=== PATIENT | female | born 1975 | race African-American/Black ===

== ENCOUNTER 2016-10-23 10:56 | Emergency (ER) | payer SELFPAY ==
[~2016-10-23] VITALS: Ht 170.2 cm; Wt 89.4 kg
[~2016-10-23 10:56] MED LIST: FERROUS SULFAT325 MG PO; HYDROCODON-ACE1 EAC7 PO; MOTRIN400 MG PO; MOTRIN800 MG PO; PERCOCET 5/31 TABLET PO; Vicodin,Norco 5/325 PO; ZOFRAN ODT4 MG PO; ZOFRAN8 MG PO; [UNRECOGNIZED DRUG - OTHER] PO
[2016-10-23 11:17] LABS: POINT-OF-CARE METER ID UU13113778
[2016-10-23 11:40] LABS: HEMATOCRIT 29.9 % (36.0-46.0); MCH 20.4 PG (29.0-34.0); MCHC 27.8 G/DL (30.0-36.0); MCV 73.6 FL (83-99); PLATELET COUNT 319 K/uL (156-360); RBC DIS.WIDTH-SD 44.6 % (39-53); RED BLOOD COUNT 4.06 M/uL (3.80-5.20); WHITE BLOOD COUNT 9.8 K/uL (4.1-10.2)
[2016-10-23 11:48] LABS: CHLORIDE 107 mEq/L (99-109); POTASSIUM 3.4 mEq/L (3.7-5.4); SODIUM 139 mEq/L (136-147)
[2016-10-23 11:50] LABS: GLUCOSE 93 mg/dL (70-99)
[2016-10-23 11:52] LABS: ANION GAP 8 MEQ/L (2-14)
[2016-10-23 11:54] LABS: GFR ESTIMATE (CALCULATED) > 59 mL/min/
[2016-10-23 11:55] LABS: UREA NITROGEN (BUN) 13 mg/dL (9-23)
[2016-10-23 12:24] LABS: QUANTITATIVE HCG < 4.0 MIU/ML
[2016-10-23 12:41] LABS: ADD MIUA? YES; BILIRUBIN NEGATIVE; BLOOD LARGE; COLOR YELLOW ((YELLOW)); GLUCOSE (STRIP) NEGATIVE; KETONES 5; LEUKOCYTES NEGATIVE; NITRITE NEGATIVE; PROTEIN (STRIP) 30; SPECIFIC GRAVITY 1.025 (1.000-1.030)
[2016-10-23 12:45] LABS: BACTERIA RARE /HPF; EPITHELIAL CELLS RARE /HPF; MUCUS 2+ /LPF; RED BLOOD CELLS TNTC /HPF (0-5); UCUL ADDED? YES; WHITE BLOOD CELLS 0-5 /HPF (0-5)
[2016-10-23 13:10] VITALS: BP 117/84
[2016-10-23 13:21] LABS: TOTAL BILIRUBIN 0.7 mg/dL (0.0-1.0)
[2016-10-23 13:23] LABS: ALKALINE PHOSPHATASE 85 IU/L (3-129)
[2016-10-23 13:25] LABS: DIRECT BILIRUBIN 0.2 mg/dL (0.0-0.3)
[2016-10-23 13:26] LABS: LIPASE 16 U/L (1.0-51.0)
== END 2016-10-23 13:12 | disposition home or self-care (01) ==
LOC: EME 10:56
PROVIDERS: Emergency Medicine
DX: D64.9 Anemia, unspecified (principal); K92.2 Gastrointestinal hemorrhage, unspecified; N93.9 Abnormal uterine and vaginal bleeding, unspecified; Z98.84 Bariatric surgery status
CPT/HCPCS: 71020; 80048; 80076; 81003; 82948; 83690; 84702; 85027; 87086; 93005; 99281; 99284